=== PATIENT | female | born 1990 | race Caucasian/White ===

== ENCOUNTER 2016-09-20 18:37 | Day surgery (SDC) | payer BC ==
[~2016-09-20] VITALS: Ht 167.6 cm; Wt 86.6 kg
[2016-09-20 19:03] LABS: HEMATOCRIT 40.1 % (36.0-46.0); MCH 28.3 PG (29.0-34.0); MCHC 33.9 G/DL (30.0-36.0); MCV 83.5 FL (83-99); MEAN PLAT.VOLUME 9.1 uM^3 (9.5-12.4); PLATELET COUNT 227 K/uL (156-360); RBC DIS.WIDTH-CV 11.9 % (11.8-14.6); RBC DIS.WIDTH-SD 36.1 % (39-53)
[2016-09-20 19:11] LABS: CHLORIDE 106 mEq/L (99-109); POTASSIUM 3.8 mEq/L (3.7-5.4); SODIUM 138 mEq/L (136-147)
[2016-09-20 19:14] LABS: GLUCOSE 99 mg/dL (70-99)
[2016-09-20 19:15] LABS: ANION GAP 9 MEQ/L (2-14)
[2016-09-20 19:16] LABS: TOTAL BILIRUBIN 0.7 mg/dL (0.0-1.0)
[2016-09-20 19:17] LABS: ALKALINE PHOSPHATASE 48 IU/L (3-129); GFR ESTIMATE (CALCULATED) > 59 mL/min/
[2016-09-20 19:18] LABS: UREA NITROGEN (BUN) 6 mg/dL (9-23)
[2016-09-20 19:26] LABS: QUANTITATIVE HCG < 4.0 MIU/ML
[2016-09-20 20:59] LABS: ADD MIUA? YES; BILIRUBIN NEGATIVE; BLOOD SMALL; COLOR YELLOW ((YELLOW)); GLUCOSE (STRIP) NEGATIVE; KETONES NEGATIVE; LEUKOCYTES SMALL; NITRITE NEGATIVE; PROTEIN (STRIP) NEGATIVE; SPECIFIC GRAVITY 1.027 (1.000-1.030); UROBILINOGEN 0.2 MG/DL (0.2-1.0)
[2016-09-20 21:06] LABS: BACTERIA RARE /HPF; EPITHELIAL CELLS 1+ /HPF; MUCUS TRACE /LPF; RED BLOOD CELLS 0-5 /HPF (0-5); UCUL ADDED? NO
[2016-09-21 02:13] VITALS: BP 98/58
[2016-09-21 07:56] VITALS: BP 99/54
[2016-09-21 11:33] VITALS: BP 116/57
[2016-09-21 16:10] VITALS: BP 112/68
[2016-09-21 16:25] VITALS: BP 112/68
[2016-09-21] MEDS ORDERED: PERCOCET 5/31 TABLET PO (17:34)
[2016-09-21] MEDS ORDERED: COLACE100 MG PO (17:34)
== END 2016-09-21 18:45 | disposition home or self-care (01) ==
LOC: EME 18:37 → SDC 23:50 → EME 23:50 → 2SOUTH 09-21 00:55 → 2EAST 09-21 02:08
PROC: 0DTJ4ZZ Resection of Appendix, Percutaneous Endoscopic Approach (ICD-10-PCS; principal; 2016-09-21)
DX: K35.80 Unspecified acute appendicitis (principal)
CPT/HCPCS: 74177; 80053; 81003; 84702; 85027; 88304; 99281; 99285; G0378; J0330; J1170; J1885; J2405; J2543; J2710; J3010; J7030

== ENCOUNTER → 2017-08-03 | Outpatient (CLI) | payer BC ==
[~2017-08-03] VITALS: Ht 167.6 cm; Wt 92.0 kg
[~2017-08-03] MED LIST: COLACE100 MG PO; PERCOCET 5/31 TABLET PO; PLAQUENIL200 MG PO; PRENATAL TABLE1 EAC3 PO
[2017-08-03 13:45] VITALS: BP 122/65
== END | disposition home or self-care (01) ==
LOC: IVINF 13:39
DX: O09.899 Supervision of other high risk pregnancies, unspecified trimester (principal); Z3A.00 Weeks of gestation of pregnancy not specified; Z67.91 Unspecified blood type, Rh negative
CPT/HCPCS: 96372; J2790

== ENCOUNTER 2017-10-06 08:15 | Inpatient (IN) | payer BC ==
[2017-10-06] VITALS (14 sets, daily range): BP systolic 120–140; BP diastolic 65–106
[~2017-10-06] VITALS: Ht 167.6 cm; Wt 98.0 kg
[2017-10-06 09:59] LABS: AMPHETAMINE NEGATIVE (500 ng/mL); BARBITURATES NEGATIVE (200 ng/mL); BENZODIAZEPINES NEGATIVE (150 ng/mL); BUPRENORPHINE NEGATIVE (10 ng/mL); COCAINE NEGATIVE (150 ng/mL); METHADONE NEGATIVE (200 ng/mL); METHAMPHETAMINE NEGATIVE (500 ng/mL); OPIATES (MORPHINE) NEGATIVE (100 ng/mL); OXYCODONE NEGATIVE (100 ng/mL); PHENCYCLIDINE NEGATIVE (25 ng/mL); PROPOXYPHENE NEGATIVE (300 ng/mL); THC CANNABINOIDS NEGATIVE (50 ng/mL); TRICYCLIC ANTIDEPRESSANTS NEGATIVE (300 ng/mL)
[2017-10-06 11:51] LABS: BASOPHIL (%) 0.4 % (0-1); EOSINOPHIL (%) 1.8 % (0-5); EOSINOPHIL COUNT 0.1 K/uL (0-0.3); HEMOGLOBIN 10.8 G/DL (11.9-15.5); IMMATURE GRANULOCYTE (%) 0.6 % (0.0-0.7); LYMPHOCYTE (%) 18.9 % (15-42); LYMPHOCYTE COUNT 0.9 K/uL (1.0-2.8); MCH 27.3 PG (29.0-34.0); MCHC 32.7 G/DL (30.0-36.0); MCV 83.5 FL (83-99); MONOCYTE (%) 8.1 % (3-12); MONOCYTE COUNT 0.4 K/uL (0-0.8); NEUTROPHIL (%) 70.2 % (45-76); NEUTROPHIL COUNT 3.4 K/uL (1.8-6.4); PLATELET COUNT 188 K/uL (156-360); RBC DIS.WIDTH-CV 14.1 % (11.8-14.6); RBC DIS.WIDTH-SD 42.7 % (39-53); RED BLOOD COUNT 3.95 M/uL (3.80-5.20); WHITE BLOOD COUNT 4.9 K/uL (4.1-10.2)
[2017-10-07 06:49] LABS: HEMATOCRIT 30.9 % (36.0-46.0); HEMOGLOBIN 10.3 G/DL (11.9-15.5); LYMPHOCYTE (%) 18.9 % (15-42); MCH 27.8 PG (29.0-34.0); MCHC 33.3 G/DL (30.0-36.0); MCV 83.5 FL (83-99); NEUTROPHIL (%) 67.7 % (45-76); PLATELET COUNT 177 K/uL (156-360); RBC DIS.WIDTH-CV 14.1 % (11.8-14.6); RBC DIS.WIDTH-SD 42.9 % (39-53); WHITE BLOOD COUNT 4.4 K/uL (4.1-10.2)
[2017-10-07 06:50] LABS: BASOPHIL (%) 0.5 % (0-1); EOSINOPHIL (%) 1.4 % (0-5); EOSINOPHIL COUNT 0.1 K/uL (0-0.3); IMMATURE GRANULOCYTE (%) 0.5 % (0.0-0.7); LYMPHOCYTE COUNT 0.8 K/uL (1.0-2.8); MONOCYTE COUNT 0.5 K/uL (0-0.8)
[2017-10-07 07:20] VITALS: BP 120/70
[2017-10-07] MEDS ORDERED: IBUPROFEN800 MG PO (09:48)
[2017-10-07 14:48] VITALS: BP 131/84
== END 2017-10-07 18:15 | disposition home or self-care (01) | DRG 775 ==
LOC: LDRP-OP 08:15 → 2WEST 08:16 → LDRP-OP 11-13 10:19
PROVIDERS: Advanced Practice Midwife; Obstetrics & Gynecology
PROC: 3E033VJ Introduction of Other Hormone into Peripheral Vein, Percutaneous Approach (ICD-10-PCS; principal; 2017-10-06)
PROC: 10907ZC Drainage of Amniotic Fluid, Therapeutic from Products of Conception, Via Natural or Artificial Opening (ICD-10-PCS; principal; 2017-10-06)
PROC: 0HQ9XZZ Repair Perineum Skin, External Approach (ICD-10-PCS; 2017-10-06)
PROC: 10E0XZZ Delivery of Products of Conception, External Approach (ICD-10-PCS; 2017-10-06)
DX: O70.0 First degree perineal laceration during delivery (principal); O62.3 Precipitate labor; O99.89 Other specified diseases and conditions complicating pregnancy, childbirth and the puerperium; M47.816 Spondylosis without myelopathy or radiculopathy, lumbar region; M41.9 Scoliosis, unspecified; O99.72 Diseases of the skin and subcutaneous tissue complicating childbirth; L40.50 Arthropathic psoriasis, unspecified; O99.214 Obesity complicating childbirth; E66.9 Obesity, unspecified; Z68.33 Body mass index [BMI] 33.0-33.9, adult; Z3A.39 39 weeks gestation of pregnancy; Z37.0 Single live birth; Z87.891 Personal history of nicotine dependence
CPT/HCPCS: 85025; J7120